=== PATIENT | female | born 1975 | race Caucasian/White ===

== ENCOUNTER 2019-07-01 20:47 | Emergency (ER) | payer BC ==
[~2019-07-01] VITALS: Ht 160 cm; Wt 86.4 kg
[2019-07-01 20:58] VITALS: BP 143/72; TEMP 99
[2019-07-01] MEDS ORDERED: ASPIRIN 81M81 MG/TA2 PO (21:23)
[2019-07-01] MEDS ORDERED: PROTONIX 40MG T40 MG PO (21:23)
[2019-07-01] MEDS ORDERED: WELLBUTRIN 75MG75 MG PO (21:23)
[2019-07-01 22:25] VITALS: PULSE 67
== END 2019-07-01 22:30 | disposition home or self-care (01) ==
LOC: COL.ER 20:47
DX: S61.213A Laceration without foreign body of left middle finger without damage to nail, initial encounter (principal); S61.215A Laceration without foreign body of left ring finger without damage to nail, initial encounter; K21.9 Gastro-esophageal reflux disease without esophagitis; Z23 Encounter for immunization; Z79.82 Long term (current) use of aspirin; W26.0XXA Contact with knife, initial encounter; Y92.009 Unspecified place in unspecified non-institutional (private) residence as the place of occurrence of the external cause